=== PATIENT | male | born 1960 | race African-American/Black ===

== ENCOUNTER 2018-09-19 17:51 | Emergency (ER) | payer BC, OTHER ==
[~2018-09-19] VITALS: Ht 180.3 cm; Wt 127.0 kg
[2018-09-19] MEDS ORDERED: LIDOCAINE 1% INJ 20 ML 20 ML VIAL ONE (18:05)
--- NOTE | 2018-09-19 18:28 | ED Fall/Injury ---
General Chief Complaint: Laceration Stated Complaint: FALL - LIP LACERATION Nursing Triage Note: Patient states he was helping his daughter move when he tripped and landed on concrete, hitting his face and cutting the right side of his upper lip. Source: patient, spouse History of Present Illness Date Seen by Provider: Sep 19, 2018 Time Seen by Provider: 17:58 Initial Comments 58 yo M presents to the ED with complaints of right upper lip laceration after a fall. He has pain and bleeding from the lip. He denies losing consciousness and has no other areas of pain. he admits to drinking alcohol today. he had a bloody nose today too. He tripped and fell face forward. Occurred: this evening Severity: mild Injuries/Pain Location: face (mouth and upper lip on right side) Context: tripped Loss of Consciousness: no loss of consciousness Associated Symptoms (Fall): No Abdominal Pain, No Chest Pain, No Confusion, No Dizziness, No Headache, No Lightheadedness, No Muscle Spasms, No Nausea/Vomiting, No Neck Pain, No Ringing in Ears, No Seizures, No Shortness of Air, No Slurred Speech, No Trouble Walking, No Vision Changes Allergies and Home Medications Allergies Coded Allergies: lisinopril (Verified Allergy, Unknown, 09/19/18) Home Medications Amoxicillin/Potassium Clav 1 Each Tablet, 1 EACH PO BID Prescribed by: FAM CONCEPCION on 09/19/18 8060 Patient Home Medication List Home Medication List Reviewed: Yes Review of Systems Review of Systems Constitutional: No chills, No dizziness, No fever Eyes: No Symptoms Reported Ears, Nose, Mouth, Throat: see HPI Respiratory: no symptoms reported Cardiovascular: no symptoms reported Gastrointestinal: no symptoms reported Genitourinary: no symptoms reported Musculoskeletal: No neck pain Skin: other (laceration to right side of upper lip) Psychiatric/Neurological: No Symptoms Reported Past Jxjjqkj-Xkpjrc-Nlndwo Hx Past Med/Social Hx: Reviewed Nursing Past Med/Soc Hx Patient Social History Recent Foreign Travel: No Contact w/Someone Who Travel: No Recent Infectious Disease Expo: No Past Medical History Coronary Artery Disease, High Cholesterol, Hypertension Diabetes, Non-Insulin dep Physical Exam Vital Signs Vital Signs - First Documented 09/19/18 18:00 Temp 100.0 Pulse 111 Resp 18 B/P (MAP) 156/98 (117) Pulse Ox 92 O2 Delivery Room Air Capillary Refill : Less Than 3 Seconds Height, Weight, BMI Height: 5'11.00" Weight: 280lbs. oz. 127.487600wp; BMI Method:Stated General Appearance: WD/WN, mild distress HEENT: PERRL/EOMI, TMs normal, other (4 cm laceration extending through the suki border) Neck: non-tender, full range of motion, supple, normal inspection Cardiovascular: normal peripheral pulses, regular rate, rhythm, no edema, no gallop, no JVD, no murmur Respiratory: chest non-tender, lungs clear, normal breath sounds, no respi ratory distress Gastrointestinal: non tender, soft, no pulsatile mass Extremities: normal range of motion, non-tender, normal inspection, no pedal edema Neurologic/Psychiatric: alert, oriented x 3 Skin: normal color, warm/dry Yen Coma Score Best Eye Response: (4) Open Spontaneously Best Verbal Response: (5) Oriented Best Motor Response: (6) Obeys Commands Yen Total: 15 Procedures/Interventions Wound Location: Face (upper lip, right side) Wound Length (cm): 4 Wound's Depth, Shape: into muscle, irregular, contused tissue Wound Explored: contaminated (intraoral) Anesthesia: 1% Lidocaine Volume Anesthetic (ccs): 8 Suture: Chromic (gut) Suture Size: 4-0 Number of Sutures: 11 Layer Closure?: 2 Number Deep Layer Sutures: 2 After obtaining informed consent the patient was anesthetized on the wound. He was draped in sterile fashion. Then wound cleaned with sterile saline. The wound edges were then approximated using 4-0 chromic gut. There were 9 simple interrupted stitches placed in the skin and 2 deep simple interrupted stitches to try to approximate the muscle and wound edges as well as the vermilion border. The patient tolerated the procedure well and had no immediate complications. Progress/Results/Core Measures Results/Orders My Orders Orders - AFM CONCEPCION MD Lidocaine 1% Inj 20 Ml (Xylocaine 1% Inj (09/19/18 18:05) Lidocaine 1% Inj 20 Ml (Xylocaine 1% Inj (09/19/18 18:30) Suture Set At Bedside (09/19/18 18:24) Hydrocodone/Apap 5/325 Tablet (Lortab 5 (09/19/18 18:36) Ice: Apply To Affected Area (09/19/18 18:36) Dipht,Pertuss(Acell),Tet Adult (Boostrix (09/19/18 19:00) Rx-Amoxicillin/Clav Tab (Rx-Augmentin Ta (09/19/18 22:57) Medications Given in ED Current Medications Medications Dose Ordered Sig/Brennen Route Start Time Stop Time Status Last Admin Dose Admin Diphtheria/ Tetanus/Acell Pertussis 0.5 ml ONCE ONCE IM 09/19/18 19:00 09/19/18 19:01 DC 09/19/18 19:20 0.5 ML Lidocaine HCl 20 ml ONCE ONCE INJ 09/19/18 18:30 09/19/18 18:31 DC 09/19/18 18:42 20 ML Vital Signs/I&O 09/19/18 09/19/18 18:00 23:12 Temp 100.0 98.3 Pulse 111 90 Resp 18 20 B/P (MAP) 156/98 (117) 152/98 (116) Pulse Ox 92 91 O2 Delivery Room Air Room Air Blood Pressure Mean: 117 Progress Progress Note : Progress Note Elevate head of bed given ice pack and pain pill. Give tetanus booster and plan on repairing the wound. Departure Impression Primary Impression: Laceration of upper lip, complicated Qualified Codes: S01.511A - Laceration without foreign body of lip, initial encounter Additional Impressions: Fall Qualified Codes: W19.XXXA - Unspecified fall, initial encounter Alcohol intoxication Qualified Codes: F10.920 - Alcohol use, unspecified with intoxication, uncomplicated Disposition: 01 HOME, SELF-CARE Condition: Stable Departure-Patient Inst. Decision time for Depature: 23:02 Referrals: VIOLETTA TIPTON MD (PCP/Family) Primary Care Physician Patient Instructions: Diphtheria and Tetanus Toxoids, and Acellular Pertussis Vaccine, Laceration Repair With Stitches (DC) Add. Discharge Instructions: Make sure to rinse your mouth after meals to prevent food getting into your wound. Keep your head elevated for the next few days to prevent swelling and limit bruising to the wound. Apply ice 15-20 minutes every few hours as needed to help with swelling and pain Check with clinic this week for continued pain and concerns about the wound. Return or be seen in clinic if concerned for infection such as pus draining from the wound or fever over 101 F Take the antibiotics until gone All discharge instructions reviewed with patient and/or family. Voiced understanding. Scripts Amoxicillin/Potassium Clav (Augmentin 965-125 Tablet) 1 Each Tablet 1 EACH PO BID for 7 Days, #14 TAB 0 Refills Prov: FAM CONCEPCION MD 09/19/18 FAM CONCEPCION MD Sep 19, 2018 18:27
[2018-09-19] MEDS ORDERED: LIDOCAINE 1% INJ 20 ML 20 ML VIAL INJ ONE (18:30)
[2018-09-19] MEDS ORDERED: HYDROcodone/APAP 5 MG/325 MG (LORTAB) TAB PO STA (18:36)
[2018-09-19] MEDS ORDERED: TETANUS,DIPTH,PERTUSS P/F (BOOSTRIX) 0.5 ML VIAL IM ONE (19:00)
[2018-09-19] MEDS ORDERED: RX-AMOX/CLAV. (AUGMENTIN) 500MG TAB PPK#2 PO STA (22:57)
[2018-09-19] MEDS ORDERED: AMOX-358 PO (23:06)
[2018-09-19 23:12] VITALS: BP 152/98
== END 2018-09-19 23:12 | disposition home or self-care (01) ==
LOC: EDUNIT# 17:51 → ER FS 17:54
DX: S01.511A Laceration without foreign body of lip, initial encounter (principal); F10.129 Alcohol abuse with intoxication, unspecified; I25.10 Atherosclerotic heart disease of native coronary artery without angina pectoris; E78.00 Pure hypercholesterolemia, unspecified; I10 Essential (primary) hypertension; E11.9 Type 2 diabetes mellitus without complications; R40.2142 Coma scale, eyes open, spontaneous, at arrival to emergency department; R40.2252 Coma scale, best verbal response, oriented, at arrival to emergency department; R40.2362 Coma scale, best motor response, obeys commands, at arrival to emergency department; Z23 Encounter for immunization; Z88.8 Allergy status to other drugs, medicaments and biological substances; W01.0XXA Fall on same level from slipping, tripping and stumbling without subsequent striking against object, initial encounter
CPT/HCPCS: 12013; 90471; 90715

== ENCOUNTER → 2020-09-12 | Outpatient (CLI) | payer BC ==
[~2020-09-12] MED LIST: AMOX-358 PO
== END ==
LOC: CARD 14:55
PROVIDERS: ATTEND Nurse Practitioner Family
DX: I77.819 Aortic ectasia, unspecified site (principal); I35.0 Nonrheumatic aortic (valve) stenosis
CPT/HCPCS: 93306

== ENCOUNTER 2021-08-16 13:38 | Emergency (ER) | payer BC ==
[~2021-08-16] VITALS: Ht 180.3 cm; Wt 137.6 kg
--- NOTE | 2021-08-16 14:42 | ED Lower Extremity ---
General Chief Complaint: Lower Extremity Stated Complaint: LT LEG PAIN Nursing Triage Note: PT AMBULATE TO ROOM FS02 WITHOUT DIFFICULTY WITH C/O LEFT LEG TIGHTNESS. PT STATES HE TURNED AROUND AND LEFT LEG "FELT LIKE IT SHIFTED". Source: patient Exam Limitations: no limitations History of Present Illness Date Seen by Provider: August 16, 2021 Time Seen by Provider: 13:30 Initial Comments Patient is a 61-year-old -Serbian male who presents with left posterior calf tenderness and swelling with rash for the past 3 days. Pain is mild to moderate worse with palpation and weightbearing patient denies injury. No history of cellulitis. No history of DVT PE. No chest pain palpitations shor tness of breath. No fever chills nausea vomiting or sweats. Denies trauma repetitive strain injury. No medications or therapies taken prior to ED arrival. Onset: other Severity: moderate Pain/Injury Location: left leg Method of Injury: other Modifying Factors: Improves With Other Allergies and Home Medications Allergies Coded Allergies: lisinopril (Verified Allergy, Unknown, 09/19/18) Patient Home Medication List Home Medication List Reviewed: Yes Amoxicillin/Potassium Clav (Augmentin 875-125 Tablet) 1 Each Tablet, 1 EACH PO BID Prescribed by: FAM CONCEPCION on 09/19/18 5706 Review of Systems Constitutional: see HPI EENTM: see HPI Respiratory: see HPI Cardiovascular: see HPI Gastrointestinal: see HPI Genitourinary: see HPI Musculoskeletal: see HPI Skin: see HPI Psychiatric/Neurological: See HPI All Other Systems Reviewed Negative Unless Noted: Yes Past Uqysnkr-Hijzfs-Pswljk Hx Patient Social History Tobacco Use?: Yes Smoking Status: Never a Smoker Smokeless Tobacco Frequency: Never a User Use of E-Cig and/or Vaping dev: No Substance use?: No Alcohol Use?: No Pt feels they are or have been: No Immunizations Up To Date COVID19 Vaccine Production Cell Leader: MODERNA Seasonal Allergies Seasonal Allergies: No Past Medical History Surgeries: Yes (carpal tunnel, elbow surgery) Respiratory: No Cardiac: Yes (CHF ) Coronary Artery Disease, High Cholesterol, Hypertension Neurological: No Genitourinary: No Gastrointestinal: No Musculoskeletal: Yes Arthritis Endocrine: Yes Diabetes, Non-Insulin dep HEENT: No Cancer: No Psychosocial: No Integumentary: No Blood Disorders: No Physical Exam Vital Signs Vital Signs - First Documented 08/16/21 13:47 Temp 36.5 Pulse 92 Resp 14 B/P (MAP) 130/98 (109) O2 Delivery Room Air Capillary Refill : Less Than 3 Seconds Height, Weight, BMI Height: 5'11.00" Weight: 280lbs. oz. 127.247682aa; 42.00 BMI Method:Stated General Appearance: WD/WN, no apparent distress HEENT: PERRL/EOMI, pharynx normal Neck: non-tender, full range of motion Cardiovascular: normal peripheral pulses, regular rate, rhythm Respiratory: lungs clear Gastrointestinal: non tender, soft Back: normal inspection Legs: left leg pain, left leg soft tissue tenderness Knees: left knee other (Cellulitis of left leg) Neurologic/Tendon: other Neurologic/Psychiatric: other Lymphatic: other Procedures/Interventions Suture Size: 4-0 Progress/Results/Core Measures Results/Orders My Orders Orders - BEULAH DELANEY DO Us Left Lower Ext [id number] (08/16/21 13:53) Vital Signs/I&O 08/16/21 13:47 Temp 36.5 Pulse 92 Resp 14 B/P (MAP) 130/98 (109) O2 Delivery Room Air Blood Pressure Mean: 109 Departure Communication (Admissions) Left leg venous Doppler ultrasound: Negative for D Left leg pain and swelling with rash. No findings of DVT on ultrasound. Exam most consistent with left leg cellulitis. Will place patient on antibiotics pain medications and have him keep elevated at rest. Impression Primary Impression: Left leg pain Additional Impression: Cellulitis Disposition: 01 HOME, SELF-CARE Condition: Stable Departure-Patient Inst. Decision time for Depature: 14:41 Referrals: PAO BLOCK APRN (PCP) Primary Care Physician [facility] (Family) Primary Care Physician Patient Instructions: Cellulitis (Skin Infection), Adult (DC) Add. Discharge Instructions: You were evaluated in the emergency department for left leg pain and cellulitis. Please take newly prescribed medications as directed, keep leg elevated above the level of your heart while at rest, and follow-up with your PCP in 3 to 5 days for reevaluation. Return to the ED if new or worsening symptoms All discharge instructions reviewed with patient and/or family. Voiced understanding. Scripts Tramadol HCl (Tramadol HCl) 50 Mg Tablet 50 MG PO Q6H PRN for PAIN for 3 Days, #12 TAB 0 Refills Prov: BEULAH DELANEY DO 08/16/21 Clindamycin HCl (Clindamycin HCl) 300 Mg Capsule 300 MG PO TID, #30 CAP Prov: BEULAH DELANEY DO 08/16/21 BEULAH DELANEY DO August 16, 2021 14:42
[2021-08-16] MEDS ORDERED: CLIN-144 PO (14:43)
[2021-08-16] MEDS ORDERED: TRM50T PO (14:43)
--- NOTE | 2021-08-16 14:57 | Diagnostic Imaging Report ---
INDICATION: Left leg pain. Left leg venous Doppler study was performed in the routine fashion with color flow Doppler and waveform analysis. FINDINGS: The left common femoral vein, superficial femoral vein, popliteal vein and visualized portion of the posterior tibial vein show normal compressibility and venous flow patterns. There is normal augmentation. IMPRESSION: No evidence of deep vein thrombosis of the major veins of the left leg. Dictated by: Dictated on workstation # [id number]
[2021-08-16 14:58] VITALS: BP 137/83
== END 2021-08-16 14:58 | disposition home or self-care (01) ==
LOC: EDUNIT# 13:38 → ER FS 13:39
DX: L03.116 Cellulitis of left lower limb (principal)
CPT/HCPCS: 76881

== ENCOUNTER → 2021-11-12 | Outpatient (CLI) | payer BC ==
[~2021-11-12] MED LIST changes: +CLIN-144 PO; +TRM50T PO
--- NOTE | 2021-11-12 17:40 | Diagnostic Imaging Report ---
INDICATION: Great toe callus. Toe pain. FINDINGS: There appears to be some soft tissue swelling about the great toe but there are no findings of underlying osseous erosion or cortical disruption. There is no evidence of an acute fracture. There are advanced arthritic changes within the toe including within the interphalangeal joints as well as within the metatarsophalangeal joint. There also are significant arthritic changes present throughout the remainder of the toe and metatarsophalangeal joint as well as spurring within the midfoot. IMPRESSION: 1. Advanced arthritic changes throughout the left forefoot and midfoot without findings of malalignment or acute fracture 2. Great toe soft tissue swelling without foreign body or evidence of osseous resorption to suggest osteomyelitis. Dictated by: Dictated on workstation # [id number]
== END ==
LOC: RAD FS 16:45
PROVIDERS: ATTEND Nurse Practitioner Family
DX: M19.072 Primary osteoarthritis, left ankle and foot (principal); L84 Corns and callosities
CPT/HCPCS: 73660

== ENCOUNTER 2022-05-12 09:26 | Emergency (ER) | payer BC ==
[~2022-05-12] VITALS: Ht 180.3 cm; Wt 140.6 kg
[2022-05-12] MEDS ORDERED: KETOROLAC 30 MG/ML VIAL IM STA (09:46)
[2022-05-12] MEDS ORDERED: ORPHENADRINE 60 MG/2 ML (NORFLEX) AMP (ED ONLY) IM STA (09:46)
[2022-05-12 09:58] LABS: BILIRUBIN,URINE NEGATIVE (NEGATIVE); CLARITY,URINE CLEAR; COLOR,URINE YELLOW; GLUCOSE, URINE (UA) 3+ (NEGATIVE); KETONES,URINE NEGATIVE (NEGATIVE); LEUKOCYTE ESTERASE ,URINE NEGATIVE (NEGATIVE); NITRITE,URINE NEGATIVE (NEGATIVE); PH,URINE 5.5 (5-9); PROTEIN,URINE NEGATIVE (NEGATIVE)
--- NOTE | 2022-05-12 10:00 | ED Back Pain ---
General Chief Complaint: Back Problems Stated Complaint: RIGHT SIDE PAIN, RADIATE TO LOWER BACK Source of Information: Patient History of Present Illness Date Seen by Provider: May 12, 2022 Time Seen by Provider: 09:30 Initial Comments 61-year-old male presenting with complaints of over 3 weeks of pain to his right lower ribs and right flank. At times there is a burning sensation. Other times it feels like there are pulled muscles with his ribs and side. He denies fever, chills, nausea, vomiting, cough, shortness of breath, pain with urination, diarrhea, blood in his urine, blood in stools. He does have some constipation and his last 2 to 3 weeks. He also has a history of eczema but does not have a rash or any changes in skin appearance on the right side where he is having the pain. He denies having pain like this previously. He denies any injury or t rauma to cause the pain to start. He feels the pain is a little worse when he takes a deep breath and with certain movements. He has used [id number] medications with improvement in the pain but it never completely goes away. It is not made worse by eating or using the bathroom. Nothing radiates into his chest or down into his legs and he does not have pain on the left side of his body. Timing/Duration: Other (over 3 weeks of symptoms) Severity: Moderate Pain/Injury Location: Chest (lower right ribs wrapping around back and down right flank) Method of Injury: Unknown Modifying Factors: Worse With Movement; Improves With Pain Medication Associated Symptoms: muscle spasms; No fever, No weakness, No numbness in legs/feet, No tingling in legs/feet, No sensory/motor loss, No lower back pain, No loss of bladder control, No loss of bowel control Allergies and Home Medications Allergies Coded Allergies: lisinopril (Verified Allergy, Unknown, 09/19/18) Patient Home Medication List Home Medication List Reviewed: Yes Amoxicillin/Potassium Clav (Augmentin 875-125 Tablet) 1 Each Tablet, 1 EACH PO BID Prescribed by: FAM CONCEPCION on 09/19/18 2306 Clindamycin HCl (Clindamycin HCl) 300 Mg Capsule, 300 MG PO TID Prescribed by: BEULAH DELANEY on 08/16/21 1443 Methocarbamol (Methocarbamol) 750 Mg Tablet, 1,500 MG PO Q8H PRN for muscle spasm/right flank pain Prescribed by: FAM CONCEPCION on 05/12/22 1044 Tramadol HCl (Tramadol HCl) 50 Mg Tablet, 50 MG PO Q6H PRN for PAIN Prescribed by: BEULAH DELANEY on 08/16/21 1444 Review of Systems Constitutional: No chills, No fever, No malaise EENTM: no symptoms reported Respiratory: no symptoms reported Cardiovascular: no symptoms reported Gastrointestinal: see HPI Genitourinary: no symptoms reported Musculoskeletal: see HPI Skin: see HPI Psychiatric/Neurological: No Symptoms Reported Past Ujgwwky-Qdfloj-Iemntd Hx Patient Social History Tobacco Use?: No Use of E-Cig and/or Vaping dev: No Substance use?: No Alcohol Use?: No Seasonal Allergies Seasonal Allergies: No Past Medical History Surgery/Hospitalization HX: Eczema, Hypertension, Diabetes non-insulin dependent Surgeries: Yes (carpal tunnel, elbow surgery) Respiratory: No Cardiac: Yes (CHF ) Coronary Artery Disease, High Cholesterol, Hypertension Neurological: No Genitourinary: No Gastrointestinal: No Musculoskeletal: Yes Arthritis Endocrine: Yes Diabetes, Non-Insulin dep HEENT: No Cancer: No Psychosocial: No Integumentary: No Blood Disorders: No Physical Exam Vital Signs Vital Signs - First Documented 05/12/22 05/12/22 09:32 10:48 Temp 36.5 Pulse 87 Resp 16 B/P (MAP) 159/88 (111) Pulse Ox 98 O2 Delivery Room Air Capillary Refill : Height, Weight, BMI Height: 5'11.00" Weight: 280lbs. oz. 127.459262az; 42.00 BMI Method:Stated General Appearance: No Apparent Distress, WD/WN, Obese Neck: Full Range of Motion, Normal Inspection, Non Tender, Supple Cardiovascular: Regular Rate, Rhythm, No Edema, Normal Peripheral Pulses Respiratory: Chest Non Tender, Lungs Clear, Normal Breath Sounds, No Accessory Muscle Use, No Respiratory Distress Gastrointestinal: Normal Bowel Sounds, No Pulsatile Mass, Non Tender, Soft Back: No CVA Tenderness Extremity: Normal Capillary Refill, Normal Inspection, No Calf Tenderness, No Pedal Edema Neurologic/Psychiatric: Alert, Oriented x3, park naturalist II-XII Norm as Tested Skin: Normal Color, Warm/Dry, Rash (areas of eczema on legs and a spot on right buttock. no rash on left side where he has pain/symptoms for last 3 weeks) Procedures/Interventions Suture Size: 4-0 Progress/Results/Core Measures Results/Orders Lab Results Laboratory Tests Test 05/12/22 09:37 Range/Units Urine Color YELLOW Urine Clarity CLEAR Urine pH 5.5 5-9 Urine Specific [place] 1.020 1.016-1.022 Urine Protein NEGATIVE NEGATIVE Urine Glucose (UA) 3+ H NEGATIVE Urine Ketones NEGATIVE NEGATIVE Urine Nitrite NEGATIVE NEGATIVE Urine Bilirubin NEGATIVE NEGATIVE Urine Urobilinogen 0.2 < = 1.0 MG/DL Urine Leukocyte Esterase NEGATIVE NEGATIVE Urine RBC (Auto) 1+ H NEGATIVE Urine RBC 2-5 H /HPF Urine WBC 0-2 /HPF Urine Crystals NONE /LPF Urine Bacteria NEGATIVE /HPF Urine Casts NONE /LPF Urine Mucus NEGATIVE /LPF Urine Culture Indicated NO My Orders Orders - FAM CONCEPCION MD Ua Culture If Indicated (05/12/22 09:46) Ct Abdomen/Pelvis Wo (05/12/22 09:46) Ketorolac Injection (Toradol Injection) (05/12/22 09:46) Orphenadrine Inj (Ed Only) (Norflex Inje (05/12/22 09:46) Vital Signs/I&O 05/12/22 05/12/22 09:32 10:48 Temp 36.5 36.3 Pulse 87 72 Resp 16 17 B/P (MAP) 159/88 (111) 133/83 Pulse Ox 98 O2 Delivery Room Air Room Air Progress Progress Note #1: Progress Note Potential diagnosis of pneumonia, rib contusion, pleural effusion, colitis, cholecystitis, appendicitis, kidney stones, pyelonephritis, diverticulitis, muscle strain, shingles. Will evaluate with urinalysis to look for signs of blood or infection. CT scan of the abdomen and pelvis without contrast since he has had pain for over 3 weeks and includes the right lower ribs and right flank. Administer Toradol 30 mg IM for pain and Norflex 60 mg IM for possible muscle spasms. Consider blood work but since his symptoms have been over 3 weeks and are vague as well as sounded more musculoskeletal in nature will defer CBC, chemistry, lipase for now. If he has abnormal findings on his urinalysis or CT then labs may be added on. Progress Note #2: Time: 10:04 Progress Note UA shows glucose present as well as red blood cells. No Nit, LE or bacteria to indicate infection. This could be related to a kidney stone or renal colic. Renal mass or bladder cancer are other more dire considerations. On my personal interpretaion and review of his CT scan of abdomen/pelvis without contrast he has 2 areas of hypoattenuation in right kidney for possible cystic structures. No pleural effusion, bowel obstruction, rib fracture, colitis, diverticulitis, kidney stones. Mild stranding around right kidney as well. Progress Note #3: Time: 10:34 Progress Note I reviewed radiologist reading on Ct scan of abdomen/pelvis without contrast. They saw hepatic steatosis with renal cysts on right kidney. No kidney stones, rib fractures, effusion, mass, diverticulitis, colitis, obstruction. With him having some blood and glucose in the urine he should follow up with clinic and likely need to see Urology about the hematuria to further work up and evaluate blood in urine and renal cyst. Will check to see if his symptoms are improved or not and could try continued muscle relaxer for right lower rib and low back pain radiating around his right flank. Encourage fluids and hydration and check with clinic to see about urology referral for hematuria and renal cyst. Over the counter ibuprofen/acetaminophen as needed for pain in addition to prescription muscle relaxer. When reviewing results with patient he states that he has known of cyst on kidney for years, but did not know sizing of it. He denies having blood in urine previously to his knowledge. He was reassured they did not see fracture or mass/tumor. Will proceed with plan as above and counseled on follow up and return precautions as well as encouraged to see clinic about Urology referral or further work up of hematuria. He does feel the shots have helped with his pain and symptoms. Will continue with muscle relaxer for his symptoms in addition to over the counter medicine. Diagnostic Imaging Diagonstic Imaging: CT Plain Films/CT/US/NM/MRI: abdomen, pelvis Comments NAME: KEEAKINDARRELL BAHENA REC#: [id number] PT STATUS: REG ER : 1960 PHYSICIAN: FAM CONCEPCION MD ADMIT DATE: 05/12/22/ER FS Draft Date of Exam:05/12/22 CT ABDOMEN/PELVIS WO CT ABDOMEN/PELVIS WO TECHNIQUE: Unenhanced CT imaging of the abdomen and pelvis was performed. 2-D reformats are created and submitted for interpretation. Automatic exposure controls were utilized to optimize patient dose. INDICATION: Right lower rib and flank pain COMPARISON: None available. FINDINGS: Lower chest: The lung bases are clear. No pericardial or pleural effusion. Peritoneum: No free intraperitoneal air or fluid. Liver and biliary system: Diffuse hypoattenuation liver is most indicative of steatosis. No concerning focal hepatic lesion. The gallbladder is normal. No biliary duct dilation. Spleen and Pancreas: Spleen is normal. Unenhanced pancreas is grossly normal. Adrenals: Normal. tract: No renal or ureteral calculi. No obstructive uropathy. A 3.0 x 3.0 cm cyst is present in the lower pole the right kidney. Urinary bladder is decompressed, limiting assessment. Prostate is not enlarged. GI tract: Stomach is partially filled with fluid and air and there is no wall thickening. No bowel obstruction. No pericolonic inflammatory changes. Normal appendix. Vasculature and Lymph nodes: Normal caliber aorta with scattered calcifications. No abdominal or pelvic lymphadenopathy. Musculoskeletal: No fracture within the visualized portions of the lower right ribs. Additionally, there is no fracture within the lumbar spine. Multilevel degenerative disc disease and facet osteoarthritis in the lumbar spine. IMPRESSION: 1. No urinary tract calculi or obstructive uropathy. 2. No fracture in the lower right ribs or lumbar spine. 3. Diffuse hepatic steatosis. Dictated on workstation # [id number] Dict: 05/12/22 1006 Trans: 05/12/22 1023 YOANDY [id number] Interpreted by: RAZ VUONG MD Electronically signed by: Reviewed: Reviewed by Me Departure Impression Primary Impression: Rib pain on right side Additional Impressions: Right flank pain, chronic Right-sided low back pain without sciatica Qualified Codes: M54.50 - Low back pain, unspecified; G89.29 - Other chronic pain Microscopic hematuria Renal cyst, right Disposition: 01 HOME, SELF-CARE Condition: Stable Departure-Patient Inst. Decision time for Depature: 10:40 Referrals: PAO BLOCK APRN (PCP) Primary Care Physician [facility] (Family) Primary Care Physician Patient Instructions: Blood in Urine (Hematuria), Adult ED, Flank Pain ED, Low Back Pain ED Add. Discharge Instructions: Try to stay well hydrated. Take the muscle relaxer to help with pain on right side. You could also try Acetaminophen 650 mg (2 regular strength 325 mg pills) every 6 hours as needed for pain and Ibuprofen 400 mg (2 of the 200 mg pills) every 6 hours as needed for pain. Follow up with clinic as they may need you to see Urology or have additional testing to look into the blood in your urine and the cyst seen on your right kidney. All discharge instructions reviewed with patient and/or family. Voiced understanding. Scripts Methocarbamol (Methocarbamol) 750 Mg Tablet 1500 MG PO Q8H PRN for muscle spasm/right flank pain for 7 Days, #42 TAB 0 Refills Prov: FAM CONCEPCION MD 05/12/22 FAM CONCEPCION MD May 12, 2022 10:00
[2022-05-12 10:01] LABS: BACTERIA,URINE NEGATIVE /HPF; WBC,URINE 0-2 /HPF
--- NOTE | 2022-05-12 10:24 | Diagnostic Imaging Report ---
CT ABDOMEN/PELVIS WO TECHNIQUE: Unenhanced CT imaging of the abdomen and pelvis was performed. 2-D reformats are created and submitted for interpretation. Automatic exposure controls were utilized to optimize patient dose. INDICATION: Right lower rib and flank pain COMPARISON: None available. FINDINGS: Lower chest: The lung bases are clear. No pericardial or pleural effusion. Peritoneum: No free intraperitoneal air or fluid. Liver and biliary system: Diffuse hypoattenuation liver is most indicative of steatosis. No concerning focal hepatic lesion. The gallbladder is normal. No biliary duct dilation. Spleen and Pancreas: Spleen is normal. Unenhanced pancreas is grossly normal. Adrenals: Normal. tract: No renal or ureteral calculi. No obstructive uropathy. A 3.0 x 3.0 cm cyst is present in the lower pole the right kidney. Urinary bladder is decompressed, limiting assessment. Prostate is not enlarged. GI tract: Stomach is partially filled with fluid and air and there is no wall thickening. No bowel obstruction. No pericolonic inflammatory changes. Normal appendix. Vasculature and Lymph nodes: Normal caliber aorta with scattered calcifications. No abdominal or pelvic lymphadenopathy. Musculoskeletal: No fracture within the visualized portions of the lower right ribs. Additionally, there is no fracture within the lumbar spine. Multilevel degenerative disc disease and facet osteoarthritis in the lumbar spine. IMPRESSION: 1. No urinary tract calculi or obstructive uropathy. 2. No fracture in the lower right ribs or lumbar spine. 3. Diffuse hepatic steatosis. Dictated by: Dictated on workstation # [id number]
[2022-05-12] MEDS ORDERED: METH-732 PO (10:44)
[2022-05-12 10:48] VITALS: BP 133/83
== END 2022-05-12 10:49 | disposition home or self-care (01) ==
LOC: EDUNIT# 09:26 → ER FS 09:27
DX: N28.1 Cyst of kidney, acquired (principal); G89.29 Other chronic pain
CPT/HCPCS: 74176; 81000